=== PATIENT | male | born 1980 | race Caucasian/White ===

== ENCOUNTER 2020-03-21 15:45 | Outpatient (CLI) | payer OTHER ==
--- NOTE | 2020-03-22 12:24 | MRI Report ---
PROCEDURE: Shoulder RT W/O INDICATIONS: SHOULDER PAIN TECHNIQUE: Noncontrast oblique coronal T2 fast spin echo with fat saturation, oblique sagittal T1 spin echo and T2 fast spin echo with fat saturation, axial T1 spin echo and T2 fast spin echo with fat saturation t hrough the shoulder. COMPARISON: None. FINDINGS: Image quality: Excellent. Rotator cuff: Tendinosis and low-grade articular and bursal surface partial-thickness tear involving distal supraspinatus at its insertion on humeral head extending to musculotendinous junction is seen. The infraspinatus, and subscapularis tendons appear intact throughout. No rotator cuff muscle atrop hy on sagittal images. Bones and bursae: No bone marrow contusions or fractures. Mild to moderate acromioclavicular joint o steoarthritic changes are seen with downward osteophyte formation depressing on musculotendinous junc tion of supraspinatus. The acromion demonstrates conventional anatomy, without an os acromiale. No p athologic subacromial/subdeltoid bursal fluid is present. Capsule and soft tissues: In the absence of intra-articular contrast, subtle signal abnormality and contour irregularity involving superior anterior labrum at 12 to 1:00 position is seen concerning for focal superior anterior labral tear. The glenohumeral ligaments appear intact. The long head of the biceps tendon demonstrates normal location and morphology. The rotator interval appears normal, wit hout fibrosis. The coracohumeral ligament is normal in thickness. IMPRESSION: 1. Tendinosis and low-grade articular and bursal surface partial-thickness tear involving distal supr aspinatus extending to musculotendinous junction. No full-thickness rotator cuff tendon rupture. No m uscle atrophy. 2. Mild to moderate acromioclavicular joint osteoarthritis. 3. Finding is concerning for subtle superior anterior labral tear at 12 to 1:00 position. Reviewed by: Mo Colvin MD on 03/22/2020 12:23 PM PST Approved by: Mo Colvin MD on 03/22/2020 12:23 PM PST Station ID: [id number]
== END 2020-03-21 15:46 | disposition home or self-care (01) ==
LOC: DI 15:45
PROVIDERS: ATTEND Student in an Organized Health Care Education/Training Program
DX: M75.111 Incomplete rotator cuff tear or rupture of right shoulder, not specified as traumatic (principal); M19.011 Primary osteoarthritis, right shoulder; R93.6 Abnormal findings on diagnostic imaging of limbs

== ENCOUNTER 2020-06-12 09:47 | Outpatient (CLI) | payer OTHER ==
--- NOTE | 2020-06-12 14:05 | SLEEP CARE CONSULTATION ---
Information from patient questionnaire entered by Yumiko Cao. I have reviewed and concur with the information entered by Yumiko Cao. This document represents the service I personally performed and the decisions made by me, Keyshawn Meraz MD, [facility]. History of Present Illness Service Date and Time: 06/12/2020 0947 Reason for Visit: New patient Chief Complaint: reports: Unrefreshed sleep, Snoring, Excessive daytime sleepiness, Frequent awakenings at night Date of Onset: 7 years Usual bedtime: 2200 Time it takes to fall asleep: 15-20 Snores at night: Yes Observed to quit breathing while asleep: No Sleeps alone due to snoring: No Number of times waking at night: 2-3 Reasons for waking at night: reports: Snoring, Other (Unknown reason) Toss, Turn, or Twitch while sleeping: Yes Recalls having dreams: No Usually gets out of bed at: 0550 Feels refreshed in the morning: No Morning headache: No Sleepy or fatigued during the day: Yes Ever fallen asleep while driving: No Takes day naps: No Dreams during day naps: No Prior sleep studies: No Additional HPI information: I had the pleasure of seeing Mr. Solano today regarding the possibility of him having a sleep disorder. As you know, he is a 39 year old gentleman who complains of loud snore, frequent awakenings, unrefreshed sleep, and excessive daytime sleepiness for about 7 years. According to his , his snore has progressively gotten louder. He does wake himself up from his own snore. She has not seen him quit breathing. He feels sleepy and tired during the day. [place] Sleepiness Scale score is 18. His father and grandfather snore loudly but have never tested for sleep apnea. 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 Patient is and lives in . Have you smoked in the past 12 months: Yes Cigarettes per day (20/pack): 20 Years of smokin Quit date: 2007 Smoking Pack Years: 10.0 Alcohol use: Yes Alcohol amount and frequency: 1-2 per week Caffeine use: Yes Caffeine amount and frequency: 2-3 coffee per day Family History Family history of sleep disordered breathing: Yes Family Hx Sleep Apnea: Father: Snoring, Grandparent: Snoring Allergies and Home Medications Drug allergies reviewed: Yes Home medication list reviewed: Yes Review of Systems Weight gain over past 5 years: 10 Weight loss over past 5 years: 10 Cardiovascular: denies: high blood pressure, palpitations, chest pain, irregular heart rate or pulse, leg or foot swelling, have to sleep sitting up, other Respiratory: denies: shortness of breath, wheeze, sputum production, chronic cough, other Gastrointestinal: reports: heartburn Urinary: denies: incontinence, frequency, urgency, impotence, other Neurological: denies: headaches, seizure, head trauma, disorientation, speech dysfunction, gait or balance problems, fainting or unconsciousness, other Ear/Nose/Throat: reports: wisdom teeth removed Endocrine: reports: sluggishness (tired), unexplained weakness Musculoskeletal: reports: joint pain (stiffness), back pain, muscle pain or cramping Immunologic: denies: sneezing, rash, itching, allergies to food or environment, other Physical Exam Vital signs obtained and entered by: Dr. Meraz Blood Pressure: 130/103 Cuff size: regular Heart Rate: 70 O2 Saturation: 98 Height: 5 ft 7 in Weight: 200 lb Body Mass Index: 31.3 BMI Classification: Obese Neck circumference: 17 Mood/affect: normal HEENT: No craniofacial malformation Nostrils: patent to airflow Turbinates: normal Septum: midline Mouth and throat: narrow oropharynx Soft palate: long Hard palate: normal Uvula: normal Uvula visualization: 25% Mallampati Class III Tongue: normal in size Tonsils: small Chin and jaw: normal size and position Impression and Plan IMPRESSION: 1. Obstructive Sleep Apnea-Hypopnea Syndrome, as suggested by history of loud and irregular snoring, frequent awakenings during the night, unrefreshed sleep, and daytime hypersomnolence. Narrow oropharynx and obesity are common predisposing factors for obstructive sleep apnea-hypopnea syndrome. I recommend proceeding to polysomnography to confirm the diagnosis and to assess severity. The patient would like to first have a home sleep apnea test (HSAT). Plan: 1. Schedule a home sleep apnea test (HSAT) 2. Avoid long distance driving or when feeling sleepy. 3. Avoid alcohol, sedative and muscle relaxant around bedtime. 4. Attempt to lose weight. 5. Return for follow up after the test. Counseling Topics: Weight control Follow up recommended for: Weight management Time Spent with Patient (minutes): 15
[2020-06-12 14:06] VITALS: BP 130/103
== END 2020-06-12 09:48 | disposition home or self-care (01) ==
LOC: SC 09:47
PROVIDERS: ATTEND Internal Medicine Pulmonary Disease
DX: R06.83 Snoring (principal); F17.200 Nicotine dependence, unspecified, uncomplicated; G47.8 Other sleep disorders; G47.10 Hypersomnia, unspecified; E66.9 Obesity, unspecified; Z68.31 Body mass index [BMI] 31.0-31.9, adult
CPT/HCPCS: 99202; 99212

== ENCOUNTER 2020-06-16 08:31 | Outpatient (CLI) | payer OTHER | END 2020-06-16 08:32 | disposition home or self-care (01) | LOC: SC 08:31 | PROVIDERS: ATTEND Internal Medicine Pulmonary Disease | DX: R09.02 Hypoxemia (principal); R00.0 Tachycardia, unspecified | CPT/HCPCS: 95806 ==

== ENCOUNTER 2020-06-26 09:13 | Outpatient (CLI) | payer OTHER ==
--- NOTE | 2020-06-26 09:47 | SLEEP CARE CONSULTATION ---
Information from patient questionnaire entered by Yumiko Cao. I have reviewed and concur with the information entered by Yumiko Cao. This document represents the service I personally performed and the decisions made by me, Keyshawn Meraz MD, [facility]. History of Present Illness Service Date and Time: 06/26/2020 09 Initial [place] Sleepiness Scale score: 18 (in 2020) Additional HPI information: HPI: Mr. Schaefer returned for follow up of the home sleep apnea test (HSAT) he had on 06/16/20. The test was inconclusive due to significant data loss. The patient reports pulse oximeter falling off frequently throughout the night. He says that he tosses and turns a lot. Sleep Study - Results Type of Sleep Study: Home sleep study Prior sleep studies: No Allergies and Home Medications Drug allergies reviewed: Yes Home medication list reviewed: Yes Review of Systems Review of systems same as previous: Yes Physical Exam Height: 5 ft 7 in Weight: 200 lb Body Mass Index: 31.3 BMI Classification: Obese Impression and Plan IMPRESSION: 1. Obstructive Sleep Apnea-Hypopnea Syndrome, cannot be diagnosed with the recently performed home sleep apnea test (HSAT) due to technical problems. PLAN: 1. Repeat the home sleep apnea test (HSAT). The patient says that he will tape the sensors on more firmly. 2. Return for follow up after the test. 3. Consider an in-laboratory polysomnography if the home sleep apnea test ( HSAT) does not work. Visit Type: In Office Time Spent with Patient (minutes): 10 Provider Statement: I spent 100% of the Face to Face Visit with the patient with greater than 50% spent counseling the patient and coordination of care.
== END 2020-06-26 09:14 | disposition home or self-care (01) ==
LOC: SC 09:13
PROVIDERS: ATTEND Internal Medicine Pulmonary Disease
DX: E66.9 Obesity, unspecified (principal); Z68.31 Body mass index [BMI] 31.0-31.9, adult
CPT/HCPCS: 99212

== ENCOUNTER 2020-06-27 08:29 | Outpatient (CLI) | payer OTHER | END 2020-06-27 08:30 | disposition home or self-care (01) | LOC: SC 08:29 | PROVIDERS: ATTEND Internal Medicine Pulmonary Disease | DX: R06.83 Snoring (principal); G47.8 Other sleep disorders; E66.3 Overweight; Z68.31 Body mass index [BMI] 31.0-31.9, adult | CPT/HCPCS: 95806 ==

== ENCOUNTER 2020-07-17 10:47 | Outpatient (CLI) | payer OTHER ==
--- NOTE | 2020-07-17 12:29 | SLEEP CARE CONSULTATION ---
Information from patient questionnaire entered by Agnes Cooley. I have reviewed and concur with the information entered by Agnes Cooley. This document represents the service I personally performed and the decisions made by me, Keyshawn Meraz MD, [facility]. History of Present Illness Service Date and Time: 07/17/2020 1047 Initial [place] Sleepiness Scale score: 18 (in 2020) Current [place] Sleepiness Scale score: 13 Additional HPI information: HPI: Mr. Schaefer returned for follow up of the home sleep apnea test (HSAT) he had on 06/27/20. The test was did not show significant sleep-disordered breathing but there was partial loss of pulse oximeter signal. This is the patients second home sleep apnea test (HSAT). Sleep Study - Results Type of Sleep Study: Home sleep study Prior sleep studies: No Allergies and Home Medications Drug allergies reviewed: Yes Home medication list reviewed: Yes Review of Systems Review of systems same as previous: Yes Physical Exam Height: 5 ft 7 in Weight: 200 lb Body Mass Index: 31.3 BMI Classification: Obese Impression and Plan IMPRESSION: 1. Obstructive Sleep Apnea-Hypopnea Syndrome, not demonstrated by the two home sleep apnea tests but both tests had technical issues which are not uncommon. Therefore, an in-laboratory polysomnography will be ordered. PLAN: 1. Order an in-laboratory polysomnography. 2. Return for follow up after the sleep study. Visit Type: In Office Time Spent with Patient (minutes): 15 Provider Statement: I spent 100% of the Face to Face Visit with the patient with greater than 50% spent counseling the patient and coordination of care.
== END 2020-07-17 10:48 | disposition home or self-care (01) ==
LOC: SC 10:47
PROVIDERS: ATTEND Internal Medicine Pulmonary Disease
DX: G47.33 Obstructive sleep apnea (adult) (pediatric) (principal); E66.9 Obesity, unspecified; Z68.31 Body mass index [BMI] 31.0-31.9, adult
CPT/HCPCS: 99212

== ENCOUNTER 2020-09-06 20:51 | Outpatient (CLI) | payer OTHER | END 2020-09-06 20:52 | disposition home or self-care (01) | LOC: SC 20:51 | PROVIDERS: ATTEND Internal Medicine Pulmonary Disease | DX: R06.83 Snoring (principal); R06.81 Apnea, not elsewhere classified; G47.10 Hypersomnia, unspecified | CPT/HCPCS: 95810 ==

== ENCOUNTER 2020-09-14 09:05 | Outpatient (CLI) | payer OTHER ==
--- NOTE | 2020-09-14 09:23 | SLEEP CARE CONSULTATION ---
Information from patient questionnaire entered by Yumiko Cao. I have reviewed and concur with the information entered by Yumiko Cao. This document represents the service I personally performed and the decisions made by , Phyllis Norton ARNP. History of Present Illness Service Date and Time: 09/14/2020904 Initial [place] Sleepiness Scale score: 18 (in 2020) Current [place] Sleepiness Scale score: 11 Additional HPI information: SANDRA MICHAEL returns for follow up and results of the recently performed polysomnography. The patient was informed of the following findings: Patient had no significant sleep disordered breathing with an average AHI of 3.5 and a clau oxygen saturation of 81%. I explained the pathophysiology behind obstructive sleep apnea. Patient does not have sleep apnea and was advised how weight gain could increase the risk of developing sleep apnea in the future. I strongly encouraged the patient to lose weight. Patient has light snoring. Snoring can be reduced by weight loss. Weight loss is best achieved with diet consult. Patient instructed to contact PCP for referral. Snoring can also be treated with an oral appliance from a dentist. Advised to check insurance coverage. In addition, an ENT evaluation can be do to see if other treatment is indicated. Patient counseled not drink alcohol less than 4 hours before bedtime as it can increase snoring and apnea. Patient was cautioned about risks of drowsy driving until sleepiness symptoms resolve. Sleep Study - Results Type of Sleep Study: Polysomnography Prior sleep studies: Yes Polysomnography/Home Sleep Study results: IMPRESSION: The quality of the study is good. The patient had normal sleep efficiency. The sleep architecture was relatively normal considering the first-night effect. Respiratory monitoring showed no significant sleep disordered breathing (AHI = 3.5) or hypoxia (clau oxygen saturation of 81% but only 0.5% to the total sleep time was spent with oxygen saturation below 90%). The patient slept mostly supine (supine AHI = 0.5; non-supine = 7.54). Snore was infrequent and light in intensity. There was no significant periodic leg movement of sleep. Cardiac rhythm was normal sinus rhythm without significant arrhythmia. No abnormal behavior (parasomnia) observed during the night. CONCLUSIONS and RECOMMENDATIONS: 1. This is a normal in-laboratory polysomnography. Clinical correlation advised. Allergies and Home Medications Home medication list reviewed: Yes (no changes) Review of Systems Review of systems same as previous: Yes (no changes) Physical Exam Heart Rate: 74 O2 Saturation: 99 Height: 5 ft 7 in Weight: 203 lb (with boots and uniform) Body Mass Index: 31.8 BMI Classification: Obese Impression and Plan Snoring but no significant sleep disordered breathing. Patient advised that often weight loss will reduce snoring as well as apnea risk. An oral appliance can also be used for snoring. This would require a dental consultation. Patient cautioned not to use other online appliances as can cause bite issues. A list of accredited dentists in [facility] and one local dentist who makes oral appliances is available in office. Patient is advised to check if insurance will cover. An ENT consult can also be helpful to determine if any other treatment is an option. * Attempt to lose weight * Avoid alcohol consumption near bedtime * The patient is cautioned about driving until sleepiness is completely resolved. * Return as needed. Counseling Topics: Weight loss health impact Visit Type: In Office Time Spent with Patient (minutes): 10 Provider Statement: I spent 100% of the Face to Face Visit with the patient with greater than 50% spent counseling the patient and coordination of care.
== END 2020-09-14 09:06 | disposition home or self-care (01) ==
LOC: SC 09:05
PROVIDERS: ATTEND Nurse Practitioner Family
DX: R06.83 Snoring (principal); E66.9 Obesity, unspecified; Z68.31 Body mass index [BMI] 31.0-31.9, adult
CPT/HCPCS: 99212